=== PATIENT | female | born 1950 | race Two or more races ===

== ENCOUNTER 2021-03-15 10:23 | Day surgery (SDC) | payer OTHER ==
[~2021-03-15 10:23] MED LIST: IRBESARTAN-HCT1 EAC1 PO; LEVO-T25 MCG PO; TENORMIN100 M1 PO; ZOCOR20 MG PO
[2021-03-15] MEDS ORDERED: MORGIDOX100 MG PO (15:07)
[2021-03-15] MEDS ORDERED: NAPR500T14 PO (15:07)
== END 2021-03-15 20:15 | disposition home or self-care (01) ==
LOC: CIR.AMB 10:23
PROVIDERS: ATTEND Obstetrics & Gynecology
DX: N84.0 Polyp of corpus uteri (principal); D25.0 Submucous leiomyoma of uterus